=== PATIENT | female | born 1990 | race Caucasian/White ===

== ENCOUNTER 2021-02-12 02:24 | Outpatient (CLI) | payer BC, SELFPAY ==
[2021-02-12 09:16] LABS: TSH 1.41 uIU/mL (0.36-3.74)
[2021-02-12 17:19] LABS: Progesterone 7.5 ng/mL (See Table)
[2021-02-12 17:40] LABS: Prolactin 37.4 ng/mL (See Table)
[2021-02-16 14:49] LABS: Testosterone, Free 0.79 ng/dL (0.06-1.06); Testosterone, Total 22 ng/dL (8-60)
== END 2021-02-12 02:25 | disposition home or self-care (01) ==
LOC: LBO 02:24
PROVIDERS: PCP Nurse Practitioner Family; Visit Provider Obstetrics & Gynecology
DX: N93.8 Other specified abnormal uterine and vaginal bleeding (principal); N64.3 Galactorrhea not associated with childbirth; Z31.69 Encounter for other general counseling and advice on procreation
CPT/HCPCS: 36415; 84402; 84403; 84144; 84146; 84443

== ENCOUNTER 2021-03-12 03:06 | Outpatient (CLI) | payer BC, SELFPAY ==
[2021-03-13 22:31] LABS: Progesterone 5.3 ng/mL (See Table)
== END 2021-03-12 03:07 | disposition home or self-care (01) ==
LOC: LBO 03:06
PROVIDERS: PCP Nurse Practitioner Family; Visit Provider Obstetrics & Gynecology
DX: N92.1 Excessive and frequent menstruation with irregular cycle (principal)
CPT/HCPCS: 36415; 84144

== ENCOUNTER 2022-09-01 04:39 | Outpatient (CLI) | payer BC, SELFPAY ==
[2022-09-05 08:48] LABS: Parathyroid Hormone,Intact 42 pg/mL (19-88)
== END 2022-09-01 04:40 | disposition home or self-care (01) ==
LOC: LBO 04:39
PROVIDERS: PCP Nurse Practitioner Family; Visit Provider Physician Assistant Medical
DX: E83.52 Hypercalcemia (principal)
CPT/HCPCS: 36415; 83970

== ENCOUNTER 2023-04-30 21:40 | Emergency (ER) | payer BC, SELFPAY ==
[2023-04-30 21:42] VITALS: BP 132/87; PULSE 90; RESP 20; TEMP 36.2; O2SAT 100
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
== END 2023-04-30 22:25 | disposition home or self-care (01) ==
PROVIDERS: Emergency Provider Physician Assistant; PCP Nurse Practitioner Family
DX: T23.252A Burn of second degree of left palm, initial encounter (principal); T23.232A Burn of second degree of multiple left fingers (nail), not including thumb, initial encounter; X15.3XXA Contact with hot saucepan or skillet, initial encounter
CPT/HCPCS: 16020